=== PATIENT | male | born 1960 | race Caucasian/White ===

== ENCOUNTER 2017-08-17 03:05 | Outpatient (CLI) | payer MEDICARE, OTHER ==
--- NOTE | 2017-08-17 08:46 | Diagnostic Imaging Report ---
Indication: Headache Technique: spiral acquisitions obtained through the brain. Angled axial and coronal 5 x 5 mm slices were reconstructed. No IV contrast utilized. Radiation dose was minimized using automated exposure control Total dose length product 1417.85 mGycm. CTDIvol(s) 70.38 mGy Comparison: none FINDINGS: No acute hemorrhage or edema. No mass effect or midline shift. There is age-related enlargement of the ventricles and extra axial CSF spaces. There is periventricular deep white matter ischemic change. Normal ferrell-white differentiation. Visualized orbits are unremarkable. Centimeters considerable opacification of the sphenoid and ethmoid sinuses, mild mucosal thickening of the included portions of the left maxillary sinus. The mastoids are clear.. Intact calvarium. IMPRESSION: Chronic and age-related changes. Negative for acute intracranial bleed or mass effect Sinus disease This agrees with the preliminary interpretation provided overnight by [facility]. The CT scanner at [facility] is accredited by the [employer] and the scans are performed using protocols designed to limit radiation exposure to as low as reasonably achievable to attain images of sufficient resolution adequate for diagnostic evaluation
== END 2017-08-17 05:05 | disposition home or self-care (01) ==
LOC: RAD 03:05 → CAT 05:05
DX: J32.9 Chronic sinusitis, unspecified (principal)
CPT/HCPCS: 70450